=== PATIENT | female | born 1965 | race Caucasian/White ===

== ENCOUNTER 2022-01-20 11:49 | Outpatient (CLI) | payer OTHER ==
--- NOTE | 2022-01-28 08:37 | Mammography Report ---
BILATERAL DIGITAL SCREENING MAMMOGRAM 3D/2D: 01/20/2022 CLINICAL: Routine screening. No prior exams were available for comparison. There are scattered fibroglandular elements in both br easts. There is a possible asymmetry in the right breast at 11 o'clock posterior depth. There is architectu ral distortion associated with the asymmetry. No other significant masses, calcifications, or other findings are seen in either breast. IMPRESSION: INCOMPLETE: NEEDS ADDITIONAL IMAGING EVALUATION The possible asymmetry in the right breast is indeterminate. Additional views with possible ultrasou nd are recommended. This exam was interpreted at Station ID: [id number]. NOTE: For mammograms, a report in lay terms will be sent to the patient. Approximately 15% of breast malignancies will not be visualized mammographically. In the management of a palpable breast mass, a negative mammogram must not discourage biopsy of a clinically suspicious lesion. Electronically Signed By: Anaya [email or web address]:01/27/2022 10:24:38 ACR BI-RADS Category 0: Incomplete 3340F PARENCHYMAL PATTERN: (A) - The breast(s) demonstrate(s) scattered fibroglandular densities. BI-RADS CATEGORY: (0) - 0 Mammo and [place] [id number] Immediate follow-up LATERALITY: (B)
== END 2022-01-20 11:50 | disposition home or self-care (01) ==
LOC: DI.N 11:49
DX: Z12.31 Encounter for screening mammogram for malignant neoplasm of breast (principal); R92.8 Other abnormal and inconclusive findings on diagnostic imaging of breast

== ENCOUNTER 2024-03-05 09:06 | Outpatient (CLI) | payer OTHER ==
--- NOTE | 2024-03-05 19:37 | XRAY Report ---
PROCEDURE: Knee 2V LT INDICATIONS: SPRAIN OF MEDIAL COLLATERAL LIGAMENT OF LEFT KNEE TECHNIQUE: 3 views of the knee was obtained. COMPARISON: None FINDINGS: Bones: No fractures or dislocations. No suspicious bony lesions. Soft tissues: Small knee joint effusion. No suspicious soft tissue calcifications or masses. IMPRESSION: Small joint effusion. No fracture. Reviewed by: Kain Hutchison MD on 03/05/2024 6:35 PM AKDT Approved by: Kain Hutchison MD on 03/05/2024 6:35 PM AKDT Station ID: [id number]
== END 2024-03-05 09:07 | disposition home or self-care (01) ==
LOC: DI.N 09:06
PROVIDERS: ATTEND Family Medicine
DX: S83.412D Sprain of medial collateral ligament of left knee, subsequent encounter (principal); M25.462 Effusion, left knee

== ENCOUNTER 2024-07-02 08:30 | Outpatient (CLI) | payer OTHER ==
--- NOTE | 2024-07-02 15:03 | XRAY Report ---
PROCEDURE: Thoracic Spine 2V INDICATIONS: BACK PAIN, THORACIC REGION TECHNIQUE: 2 views of the thoracic spine were acquired. COMPARISON: None. FINDINGS: Bones: No fractures or dislocations. No suspicious bony lesions. 12 pairs of ribs are noted, and a ppear intact where visualized. Mild multilevel degenerative changes. Soft tissues: No paravertebral stripe thickening. IMPRESSION: No acute bony abnormality. Mild multilevel degenerative changes. Reviewed by: Alex Meehan MD on 07/02/2024 3:02 PM PDT Approved by: Alex Meehan MD on 07/02/2024 3:02 PM PDT Station ID: [id number]
--- NOTE | 2024-07-02 15:04 | XRAY Report ---
PROCEDURE: Cervical Spine 2-3V INDICATIONS: DEGENERATIVE DISC DISEASE, CERVICAL SPINE TECHNIQUE: 4 view(s) of the cervical spine were acquired. COMPARISON: None. FINDINGS: Bones: No fractures or dislocations to the C7 level. The lateral masses of C1 appear intact on the odontoid view. No suspicious bony lesions. Multilevel degenerative changes of the cervical spine wi th facet and uncovertebral arthropathy, disc height loss, endplate degenerative changes and spurring. This is most pronounced at C5-C6. Straightening of the normal cervical lordosis. Soft tissues: No prevertebral soft tissue swelling. IMPRESSION: Straightening of the normal cervical lordosis. Degenerative changes, most pronounced at C5-C6. Reviewed by: Alex Meehan MD on 07/02/2024 3:03 PM PDT Approved by: Alex Meehan MD on 07/02/2024 3:03 PM PDT Station ID: [id number]
== END 2024-07-02 08:45 | disposition home or self-care (01) ==
LOC: DI.N 08:30
PROVIDERS: ATTEND Family Medicine
DX: M50.30 Other cervical disc degeneration, unspecified cervical region (principal); M47.812 Spondylosis without myelopathy or radiculopathy, cervical region; M25.78 Osteophyte, vertebrae